=== PATIENT | male | born 1995 | race Caucasian/White ===

== ENCOUNTER 2016-03-05 14:39 | Emergency (ER) | payer MEDICAID, OTHER ==
[2016-03-05 14:48] VITALS: BP 142/72; PULSE 86; TEMP 98.4; BMI 22.6
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
== END 2016-03-05 16:59 | disposition home or self-care (01) ==
LOC: ED 14:39 → EDMC 16:59
DX: S39.012A Strain of muscle, fascia and tendon of lower back, initial encounter (principal); V49.40XA Driver injured in collision with unspecified motor vehicles in traffic accident, initial encounter; Y93.9 Activity, unspecified; Y92.410 Unspecified street and highway as the place of occurrence of the external cause
CPT/HCPCS: 72070; 72110; 99282